=== PATIENT | male | born 1945 | race Caucasian/White ===

== ENCOUNTER → 2016-10-12 | Outpatient (CLI) | payer MEDICARE, OTHER ==
[~2016-10-12] MED LIST: ASP325TEC PO; DXZS2T PO; LATA2.5D19 OD; ROSU10TA12 PO; TRIFLEX PO
--- NOTE | 2016-10-12 17:55 | Diagnostic Imaging Report ---
Examination: DEXA scan. Indication: osteopenia Technique: Bone mineral density estimated based on dual energy radiography over the lumbar spine and femoral necks, was performed. Findings: The lumbar spine T-score is zero which is probably slightly exaggerated the density of the lumbar spine due to degenerative sclerosis. The femoral neck T score from the left side is 0.2 and on the right side is 0.4. Impression: Normal bone mineral density. Dictated by: Dictated on workstation # [id number]
== END ==
LOC: RAD 09-28 08:34
PROVIDERS: ATTEND Urology
DX: M81.0 Age-related osteoporosis without current pathological fracture (principal)
CPT/HCPCS: 77080

== ENCOUNTER → 2017-01-12 | Outpatient (CLI) | payer MEDICARE, OTHER | LOC: CARD 08:23 | PROVIDERS: ATTEND Physician Assistant | DX: I25.10 Atherosclerotic heart disease of native coronary artery without angina pectoris (principal); I10 Essential (primary) hypertension; E78.2 Mixed hyperlipidemia; E66.01 Morbid (severe) obesity due to excess calories | CPT/HCPCS: 93306 ==

== ENCOUNTER → 2017-01-15 | Outpatient (CLI) | payer MEDICARE, OTHER ==
[~2017-01-15] VITALS: Ht 182.9 cm; Wt 100.7 kg
[~2017-01-15] MED LIST changes: +CATHETER FLUSH 10 ML SYR IV PRN
[2017-01-15 09:34] VITALS: BP 139/82
--- NOTE | 2017-01-16 07:43 | STRESS TEST ---
DATE OF SERVICE: 01/15/2017 EXERCISE MYOVIEW STRESS TEST REPORT: REFERRING PHYSICIAN: TREVA OLIVERA MD Baseline heart rate is 60. Baseline blood pressure 139/82. Baseline EKG is sinus rhythm with no ischemic changes. In summary, the patient was injected with 10.61 mCi of technetium-99 Myoview and the resting images were obtained. Then, the patient started exercising with the baseline heart rate, blood pressure and EKG mentioned above. During exercise patient had [address] depression in II, III and aVF, V4 and V5. He was injected with 30.3 mCi of technetium-99 at peak stress level. The patient was able to exercise for a total of 5 minutes 30 seconds on standard Gurmeet protocol, achieving maximum heart rate of 133, which is 89% of maximum expected heart rate. During recovery, heart rate and blood pressure returned to baseline. EKG returned to baseline. The resting and stressed images were reviewed and compared in the short axis, horizontal long axis, and vertical long axis views. Review of the images showed fix defect at the basal to mid inferior wall. No significant ischemia was noted. SSS is zero, TID value 1.05. No attenuation correction was applied on this study. On the gated images, the left ventricle appeared to be in normal size with normal contractility. Calculated ejection fraction 60%. CONCLUSION: 1. Good exercise tolerance a total of 5 minutes 30 seconds on standard Gurmeet protocol, total of 7.1 METS achieving 89% of maximum expected heart rate. 2. Nondiagnostic EKG changes with exercise returned to baseline during recovery. 3. Fixed defect at the basal to mid inferior wall. Otherwise, there is no significant ischemia or infarction on SPECT images. 4. Normal left ventricular size with normal contractility. Calculated ejection fraction 60%. Job ID: [id number] DocumentID: [id number] Dictated Date: 01/15/2017 11:44:01 Client Experience Manager Date: 01/15/2017 13:24:17 Dictated By: ELE BRADLEY MD
== END ==
LOC: CARD 08:17
PROVIDERS: ATTEND Physician Assistant
DX: I25.10 Atherosclerotic heart disease of native coronary artery without angina pectoris (principal); I11.0 Hypertensive heart disease with heart failure; I50.22 Chronic systolic (congestive) heart failure; E78.2 Mixed hyperlipidemia
CPT/HCPCS: 78452; 93017

== ENCOUNTER → 2017-07-13 | Outpatient (CLI) | payer MEDICARE, OTHER ==
[~2017-07-13] MED LIST changes: -CATHETER FLUSH 10 ML SYR IV PRN
--- NOTE | 2017-07-13 12:53 | Diagnostic Imaging Report ---
Procedure: Supine abdomen at 10:12. Indication: Chronic back pain. Two supine views were obtained. There is some gas in both the large and small bowel in a nonspecific fashion. The amount of bowel gas is actually less than noted on the prior lumbar spine exam of 08/18/2013. The bowel gas pattern is nonspecific. There is no sign of acute abnormality. There is no mass or organomegaly appreciated. The phlebolith low in the pelvis on the right seen previously is again evident. Also, as on the prior exam, there is fairly severe degenerative disc and bony disease at L3-4 on the right. There is no acute bony abnormality noted. Impression: The bowel gas pattern is nonspecific. There is no acute abnormality identified. Dictated by: Dictated on workstation # [id number]
== END ==
LOC: RAD 09:42
PROVIDERS: ATTEND Nurse Practitioner Family
DX: R10.84 Generalized abdominal pain (principal); M54.9 Dorsalgia, unspecified; G89.4 Chronic pain syndrome
CPT/HCPCS: 74018

== ENCOUNTER → 2019-01-02 | Outpatient (CLI) | payer MEDICARE, OTHER | LOC: CARD 11:57 | PROVIDERS: ATTEND Internal Medicine Cardiovascular Disease | DX: I34.0 Nonrheumatic mitral (valve) insufficiency (principal); I37.1 Nonrheumatic pulmonary valve insufficiency; I11.0 Hypertensive heart disease with heart failure; I50.9 Heart failure, unspecified; I25.10 Atherosclerotic heart disease of native coronary artery without angina pectoris; E78.5 Hyperlipidemia, unspecified | CPT/HCPCS: 93306 ==

== ENCOUNTER → 2019-12-24 | Outpatient (CLI) | payer MEDICARE, OTHER ==
[~2019-12-24] VITALS: Ht 182 cm; Wt 99.0 kg
[~2019-12-24] MED LIST changes: +CATHETER FLUSH 10 ML SYR IV PRN
[2019-12-24 08:51] VITALS: BP 139/84
--- NOTE | 2019-12-24 14:24 | Cardiology Stress Test Report ---
Stress Test Report Date of Procedure/Referring: Date of Procedure: Dec 24, 2019 PCP Ele Marcial MD Admitting Physician Joaquim Gamboa MD Indications: Coronary artery disease, congestive heart failure Baseline Heart Rate: 75 Baseline Blood Pressure: Blood Pressure Systolic: 139 Blood Pressure Diastolic: 84 Vital Signs Date Time Temp Pulse Resp B/P (MAP) Pulse Ox O2 Delivery O2 Flow Rate FiO2 12/24/19 08:51 88 16 139/84 (102) 98 Room Air Baseline Vital Signs Vital Signs Date Time Temp Pulse Resp B/P (MAP) Pulse Ox O2 Delivery O2 Flow Rate FiO2 12/24/19 08:51 88 16 139/84 (102) 98 Room Air Baseline EKG: Baseline EKG: sinus rhythm with right bundle branch block Summary: After explaining the procedure and details to the patient, he signed the consent and was brought to the stress nuclear laboratory. Patient exercised on standard Gurmeet protocol, EKG, heart rate and blood pressure were monitored continuously, resting and stress doses of radio tracer were injected, imaging was acquired and reviewed in the short axis, horizontal long axis and vertical long axis views Patient was able to exercise for a total of [3 ] minutes on Gurmeet protocol, METs 4.6 Maximum heart rate 140 Maximum blood pressure 183/80 Stress EKG, Minimal nondiagnostic changes Recovery EKG, Return to baseline TID: 1.25 SSS: 4 SDS: 1 EF: 60 Conclusion: 1. Poor exercise tolerance for total of 3 minutes on Gurmeet protocol, 4.6 METs achieving 95 percent of maximum expected heart rate. 2. Hypertensive response to exercise with peak blood pressure 183/80 returned to baseline in recovery 3. Baseline right bundle branch block with nondiagnostic EKG changes with exercise returned to baseline in recovery 4. Transient ischemic dilatation of 1.25 5. Diaphragmatic attenuation with decreased uptake at the inferior wall with mild reversibility 6. Normal left ventricular size, EF 60 percent ELE MARCIAL MD Dec 24, 2019 14:24
== END ==
LOC: CARD 07:03
PROVIDERS: ATTEND Internal Medicine Cardiovascular Disease
DX: I25.10 Atherosclerotic heart disease of native coronary artery without angina pectoris (principal); I11.0 Hypertensive heart disease with heart failure; I50.22 Chronic systolic (congestive) heart failure; E78.5 Hyperlipidemia, unspecified
CPT/HCPCS: 78452; 93017; A9502

== ENCOUNTER → 2021-02-09 | Outpatient (CLI) | payer MEDICARE, OTHER ==
[~2021-02-09] MED LIST changes: -CATHETER FLUSH 10 ML SYR IV PRN
== END ==
LOC: CARD 08:30
PROVIDERS: ATTEND Internal Medicine Cardiovascular Disease
DX: I10 Essential (primary) hypertension (principal); I25.10 Atherosclerotic heart disease of native coronary artery without angina pectoris
CPT/HCPCS: 93306

== ENCOUNTER → 2021-02-18 | Outpatient (CLI) | payer MEDICARE, OTHER ==
--- NOTE | 2021-02-18 09:17 | Diagnostic Imaging Report ---
INDICATION: Low back pain with bilateral hip pain. TIME OF EXAM: 8:56 AM AP view of the pelvis and two views of each hip were obtained. Femoral acetabular alignment is normal bilaterally. The joint spaces are fairly well maintained. Both femoral heads and necks appear intact. Rami are intact. No fractures are seen. There are some degenerative changes in the lower lumbar spine. IMPRESSION: No acute bony abnormality is detected. Dictated by: Dictated on workstation # [id number]
--- NOTE | 2021-02-18 09:31 | Diagnostic Imaging Report ---
Clinical indication: Patient with low back pain. Exam: X-ray of the lumbar spine, 3 views. Comparison: X-ray of the lumbar spine dated 08-18-2013. Findings: There is no significant change of the lumbar levoscoliosis. Stable loss of lumbar lordosis. There is interval progression of multilevel degenerative spurs and facet arthropathy. There is progression of multilevel disk space high loss which is mild at the L2-L3 level, moderate at the L4-L5 level, and severe at the L3-L4 and L5-S1 level. Surgical clips are seen overlying the right upper quadrant which could be related to cholecystectomy changes. Impression: 1. There is no acute lumbar fracture or dislocation. 2. Interval progression of lumbar spine degenerative disease. Dictated by: Dictated on workstation # [id number]
== END ==
LOC: RAD 08:26
DX: M47.816 Spondylosis without myelopathy or radiculopathy, lumbar region (principal)
CPT/HCPCS: 72100; 73523

== ENCOUNTER → 2021-03-04 | Outpatient (CLI) | payer MEDICARE, OTHER ==
--- NOTE | 2021-03-04 09:03 | Diagnostic Imaging Report ---
INDICATION: Pre-MRI screening. TIME OF EXAM: 8:23 AM IMPRESSION: No radiopaque orbital foreign body is detected. Dictated by: Dictated on workstation # [id number]
--- NOTE | 2021-03-04 09:13 | Diagnostic Imaging Report ---
PROCEDURE: MRI lumbar spine. INDICATION: 75-year-old male, chronic low back pain.. TECHNIQUE: Multiplanar and multisequence magnetic resonance imagine was performed of the lumbar spine without contrast. CORRELATION STUDY: Radiographs 02/18/2021 FINDINGS: Leftward lumbar scoliotic curvature is present. Slight loss of normal lumbar lordosis. The lumbar vertebral body heights are maintained and without geographic lesion. The conus appears unremarkable. T12-L1: Unremarkable. L1-L2: Unremarkable. L2-L3: Mild loss of disc space height. Minimal broad-based disc bulge. Mild ligamentum hypertrophy with minimal trefoil type spinal canal configuration. Mild asymmetric right foraminal narrowing without nerve impingement. Left foramina maintained. L3-L4: Moderate loss of disc space height. Asymmetric endplate osteophyte formation and disc along with ligament facet hypertrophy result in mild right foraminal narrowing, slight abutment of the exiting nerve root. Left foramina maintained. Mild trefoil type spinal canal stenosis. L4-L5: Mild to moderate loss of disc space height. Broad-based disc bulge is present. Endplate osteophyte formation. Ligamentous facet hypertrophy is present. There is at least moderate to marked severity left slightly less severe right foraminal narrowing. There is mild trefoil type spinal canal narrowing slightly greater on the left with more prominent effacement of the thecal sac on the left. L5-S1: Rather significant loss of disc space height greatest on the left aspect. Asymmetric ligament facet hypertrophy on the left. Asymmetric disc osteophyte on the left results in rather significant left foraminal narrowing with flattening of the exiting nerve root. No significant spinal canal stenosis. Right foraminal is maintained. S1-S2 level does have a small rudimentary disc. No significant canal or foraminal narrowing. There is some generalized fatty atrophic change of the paraspinal musculature. IMPRESSION: 1. Multilevel degenerative changes are present. Various degrees of a predominantly foraminal narrowing are present as detailed above. Foraminal stenosis most severe at the L5-S1 level on the left at slightly lesser extent L4-L5 levels. Additional mild/moderate narrowing at L3-L4 and L2-L3 levels. Dictated by: Dictated on workstation # [id number]
== END ==
LOC: RAD 08:00
DX: M47.817 Spondylosis without myelopathy or radiculopathy, lumbosacral region (principal); M48.07 Spinal stenosis, lumbosacral region; M51.37 Other intervertebral disc degeneration, lumbosacral region; M25.78 Osteophyte, vertebrae; M51.26 Other intervertebral disc displacement, lumbar region
CPT/HCPCS: 72148

== ENCOUNTER → 2022-09-28 | Outpatient (CLI) | payer MEDICARE, OTHER | LOC: CARD 13:59 | PROVIDERS: ATTEND Internal Medicine Cardiovascular Disease | DX: I51.7 Cardiomegaly (principal); I25.10 Atherosclerotic heart disease of native coronary artery without angina pectoris | CPT/HCPCS: 93306 ==

== ENCOUNTER → 2022-12-06 | Outpatient (CLI) | payer MEDICARE, OTHER ==
[~2022-12-06] MED LIST changes: +CATHETER FLUSH 10 ML SYR IVP PRN
[2022-12-06 09:01] VITALS: BP 182/85
== END ==
LOC: CARD 07:45
PROVIDERS: ATTEND Internal Medicine Cardiovascular Disease
DX: I25.10 Atherosclerotic heart disease of native coronary artery without angina pectoris (principal)
CPT/HCPCS: 78452; 93017; A9502